=== PATIENT | male | born 2000 | race Hispanic/Latino ===

== ENCOUNTER 2025-08-05 23:18 | Emergency (ER) | payer OTHER ==
[2025-08-06] MEDS ORDERED: Dexamethasone 10 MG/ML VIAL ONE (00:13)
[2025-08-06] MEDS ORDERED: cefTRIAXone (ROCEPHIN) 1 GM VIAL ONE (00:13)
== END 2025-08-06 00:23 | disposition home or self-care (01) ==
LOC: CSHERS 23:18
DX: J01.90 Acute sinusitis, unspecified (principal)
CPT/HCPCS: 96372; 99283; J0696; J1100